=== PATIENT | female | born 1980 | race Caucasian/White ===

== ENCOUNTER 2019-10-13 07:17 | Day surgery (SDC) | payer OTHER ==
[2019-10-09 11:41] LABS: BASOPHILS # (AUTO) 0.1 X10'3 (0-0.2); BASOPHILS % (AUTO) 0.7 % (0-1); EOSINOPHILS # (AUTO) 0.2 X10'3 (0-0.9); LYMPHOCYTES # (AUTO) 2.5 X10'3 (1.1-4.8); LYMPHOCYTES % (AUTO) 32.5 % (21-51); MEAN CORPUSCULAR HEMOGLOBIN 32.4 PG (27.0-31.0); MEAN CORPUSCULAR HGB CONC 34.5 g/dL (33.0-36.5); MEAN CORPUSCULAR VOLUME 93.8 FL (78-98); MEAN PLATELET VOLUME 6.9 FL (7.4-10.4); MONOCYTES # (AUTO) 0.5 X10'3 (0-0.9); MONOCYTES % (AUTO) 6.9 % (2-12); NEUTROPHILS # (AUTO) 4.4 X10'3 (1.8-7.7); NEUTROPHILS % (AUTO) 57.9 % (42-75); PRE OP HEMATOCRIT 40.4 % (35.0-45.0); PRE OP HEMOGLOBIN 13.9 g/dL (12.0-16.0); PRE OP PLATELET COUNT 285 X10'3 (140-440); RED BLOOD COUNT 4.31 X10'6 (4.20-5.60); RED CELL DISTRIBUTION WIDTH 12.9 % (11.5-14.5)
[2019-10-09 12:08] LABS: ALBUMIN 4.3 G/DL (3.4-5.0); ALBUMIN/GLOBULIN RATIO 1.4 (1.1-1.5); ALKALINE PHOSPHATASE 54 IU/L (46-116); BLOOD UREA NITROGEN 13 MG/DL (7-18); CALCIUM 8.8 MG/DL (8.5-10.1); CHLORIDE 107 MMOL/L (99-107); CREATININE 0.81 MG/DL (0.40-0.90); PRE OP ALT 32 U/L (30-65); PRE OP ANION GAP 8 (8-16); PRE OP AST 19 U/L (10-37); PRE OP BILIRUB, TOTAL 0.3 MG/DL (0.0-1.0); PRE OP GLUCOSE 92 MG/DL (70-104); PRE OP POTASSIUM 4.2 MMOL/L (3.4-5.1); PRE OP SODIUM 144 MMOL/L (135-145); TOTAL CARBON DIOXIDE 28.9 MMOL/L (24-32); TOTAL PROTEIN 7.3 G/DL (6.4-8.2); eGFR 78 ML/MIN
[2019-10-09 12:26] LABS: HCG SERUM QL NEGATIVE
[~2019-10-13] VITALS: Ht 162.6 cm; Wt 79.4 kg
[2019-10-13] VITALS (9 sets, daily range): BP systolic 112–122; BP diastolic 64–77
[~2019-10-13 07:17] MED LIST: VITAMINS; famotidine 10mg tablet PO ONE; ringers solution, lacted 1,000 ML IV SCH
[2019-10-13] MEDS ORDERED: ROPIVAcaine 0.5% (5mg/ml) 30ml vial ONE (09:12)
[2019-10-13] MEDS ORDERED: sevoflurane 250ml liquid IH ONE (09:15)
[2019-10-13] MEDS ORDERED: fentaNYL/PF 50MCG/1 ML 2ML syringe ONE (09:22)
[2019-10-13] MEDS ORDERED: propofol inj 20 ML IV ONE (09:22)
[2019-10-13] MEDS ORDERED: midazolam 2 mg/2 ml injection ONE (09:22)
[2019-10-13] MEDS ORDERED: rocuronium 10mg/ml inj IV ONE (09:23)
[2019-10-13] MEDS ORDERED: dexamethasone sod phosphate 4mg/ml inj. ONE (09:40)
[2019-10-13] MEDS ORDERED: ringers solution, lacted 1,000 ML IV SCH (10:04)
[2019-10-13] MEDS ORDERED: morphine 4 MG/ML inj SYRINge IV PRN ×2 (10:05)
[2019-10-13] MEDS ORDERED: meperidine/PF 25mg/ml syringe IV PRN ×3 (10:05)
[2019-10-13] MEDS ORDERED: proCHLORperazine 10 MG/2 ml inj IV PRN (10:05)
[2019-10-13] MEDS ORDERED: ketorolac trometh. 30mg/ml inj. IV ONE (10:05)
[2019-10-13] MEDS ORDERED: ondansetron/PF 4mg/2ml inj IV PRN (10:05)
[2019-10-13] MEDS ORDERED: ondansetron/PF 4mg/2ml inj ONE (10:10)
[2019-10-13] MEDS ORDERED: neostigmine methylsulfate 1 MG/ML 10ml vial ONE (10:16)
[2019-10-13] MEDS ORDERED: glycopyrrolate 0.2mg/ml inj ONE (10:16)
[2019-10-13] MEDS ORDERED: oxyCODONE/APAP 5-325mg tablet PO ONE ×2 (10:35)
--- NOTE | 2019-10-13 10:35 | NUR ---
ADMITTED TO PACU FROM OR ACCOMPANIED BY ANESTHESIA. INTIAL PHYSICAL ASSESSMENT DONE AND RECORDED. REPORT RECEIVED FROM ANESTHESIA.
--- NOTE | 2019-10-13 11:45 | NUR ---
DISCHARGE CRITERIA MET, DISCHARGE INSTRUCTIONS GIVEN, DEMONSTRATES VERBAL UNDERSTANDING. DISCHARGED HOME IN GOOD CONDITION. DR COOPER AT BEDSIDE PRESCRIPTION GIVEN FOR PAIN MED. MEDICATED ORDERED PRIOR TO DISCHARGE
== END 2019-10-13 11:45 | disposition home or self-care (01) ==
LOC: PAS 07:17
PROVIDERS: ATTEND Obstetrics & Gynecology
DX: Z30.2 Encounter for sterilization (principal); N84.0 Polyp of corpus uteri; F17.210 Nicotine dependence, cigarettes, uncomplicated; Z79.899 Other long term (current) drug therapy
CPT/HCPCS: 36415; 58563; 58670; 80053; 82948; 84703; 85025; 86885; 86900; 86901; A4264; J1100; J2250; J2405; J2704; J2710; J3010; J7030; J7120; A4355; A4618; A6250; A6258; A7000; J2795; J3490

== ENCOUNTER 2019-11-28 17:24 | Emergency (ER) | payer OTHER ==
[~2019-11-28] VITALS: Ht 162.6 cm; Wt 78.8 kg
[~2019-11-28 17:24] MED LIST changes: -famotidine 10mg tablet PO ONE; -ringers solution, lacted 1,000 ML IV SCH
[2019-11-28 18:01] VITALS: BP 129/81
[2019-11-28] MEDS ORDERED: oxymetazoline 15 ML nasal spray NS ONE (22:25)
[2019-11-28] MEDS ORDERED: LIDOcaine 4% (40 mg/ml) topical solution 50ml TP ONE (22:25)
[2019-11-28] MEDS ORDERED: metoclopramide 5 mg/ml inj IV ONE ×3 (22:50→23:50)
[2019-11-28] MEDS ORDERED: ketorolac trometh. 30mg/ml inj. IV ONE ×2 (23:30→23:50)
[2019-11-28] MEDS ORDERED: METO5TAB85 PO (23:47)
== END 2019-11-28 23:57 | disposition home or self-care (01) ==
LOC: ER 17:24
DX: R51 Headache (principal); H53.149 Visual discomfort, unspecified; Z79.899 Other long term (current) drug therapy
CPT/HCPCS: 96374; 96375; 96376; 99284; J1885; J2765